=== PATIENT | male | born 1990 | race Caucasian/White ===

== ENCOUNTER 2024-10-10 08:58 | Emergency (ER) | payer OTHER, MEDICAID ==
[~2024-10-10] VITALS: Ht 188 cm; Wt 89.4 kg
[2024-10-10 09:19] VITALS: BP 112/76; PULSE 109; RESP 20; TEMP 98.1; O2SAT 97
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
--- NOTE | 2024-10-10 10:21 | DVH ---
CLINICAL INDICATION: pain TECHNIQUE: 1 radiographic views of the right hip were obtained. Comparison: None FINDINGS/IMPRESSION: There is no evidence of acute fracture or dislocation. The visualized joint space is well maintained. The alignment is anatomical. There is no radiopaque foreign body.
[2024-10-10] MEDS ORDERED: IBUP1TAB5 PO (10:27)
== END 2024-10-10 10:32 | disposition home or self-care (01) ==
LOC: ER 08:58
DX: M79.18 Myalgia, other site (principal); F17.210 Nicotine dependence, cigarettes, uncomplicated; Z91.013 Allergy to seafood; V29.99XA Rider (driver) (passenger) of other motorcycle injured in unspecified traffic accident, initial encounter; Y93.89 Activity, other specified; Y92.410 Unspecified street and highway as the place of occurrence of the external cause; Y99.8 Other external cause status
CPT/HCPCS: 73000; 73030; 73501